=== PATIENT | female | born 1985 | race Caucasian/White ===

== ENCOUNTER 2019-01-03 19:06 | Emergency (ER) | payer MEDICAID ==
[2019-01-03] MEDS: SOD CHLORIDE 0.9% 1,000 ML IV (21:49)
[2019-01-03] MEDS: ONDANSETRON 4 MG INJ IV (21:51)
[2019-01-03 22:00] LABS: ADD MAN DIFF? NO
[2019-01-03 22:05] LABS: BASOPHILS % 0.4 % (0.0-2.0); EOSINOPHILS # 0.1 10^3/ul (0.0-0.5); EOSINOPHILS % 0.9 % (0.0-7.0); HEMATOCRIT 36.2 % (37.0-47.0); LYMPHOCYTES # 2.4 10^3/ul (0.8-2.9); MEAN CORPUSCULAR HEMOGLOBIN 30.2 pg (29.0-33.0); MEAN CORPUSCULAR HGB CONC 33.1 g/dl (32.0-37.0); MEAN PLATELET VOLUME 10.1 fl (7.4-10.4); MONOCYTE # 0.6 10^3/ul (0.3-0.9); MONOCYTES % 6.2 % (0.0-11.0); NEUTROPHIL # 5.9 10^3/ul (1.6-7.5); NEUTROPHILS % 65.2 % (39.0-77.0); PLATELET COUNT 287 10^3/UL (140-415); RED BLOOD COUNT 3.98 10^6/ul (4.20-5.40); RED CELL DISTRIBUTION WIDTH 12.6 % (11.5-14.5)
[2019-01-03 22:23] LABS: ALANINE AMINOTRANSFERASE 9 IU/L (13-69); ALBUMIN 4.1 g/dl (3.3-4.9); ALBUMIN/GLOBULIN RATIO 1.17; ALKALINE PHOSPHATASE 70 IU/L (42-121); ANION GAP 9 (5-13); ASPARTATE AMINO TRANSFERASE 15 IU/L (15-46); BILIRUBIN,INDIRECT 0.2 mg/dl (0-1.1); BILIRUBIN,TOTAL 0.2 mg/dl (0.2-1.3); BLOOD UREA NITROGEN 7 mg/dl (7-20); CALCIUM 9.4 mg/dl (8.4-10.2); CARBON DIOXIDE 25 mmol/L (21-31); CHLORIDE 105 mmol/L (97-110); CREATININE 0.47 mg/dl (0.44-1.00); Estimated GFR > 60 mL/min (>60); GLUCOSE 87 mg/dl (70-220); POTASSIUM 3.7 mmol/L (3.5-5.1); SODIUM 139 mmol/L (135-144); TOTAL PROTEIN 7.6 g/dl (6.1-8.1)
== END 2019-01-03 22:48 | disposition home or self-care (01) ==
LOC: FTE 22:48
DX: O21.0 Mild hyperemesis gravidarum (principal); Z3A.10 10 weeks gestation of pregnancy
CPT/HCPCS: 36415; 80053; 85025; 96374; 99284-25

== ENCOUNTER 2019-06-30 11:14 | Inpatient (IN) | payer MEDICAID ==
[2019-06-30] MEDS ORDERED: METHYLERGONOVINE 0.2 MG INJ IM (12:00)
[2019-06-30] MEDS ORDERED: MISOPROSTOL 200 MCG TAB PR (12:00)
[2019-06-30] MEDS ORDERED: CARBOPROST 250 MCG INJ IM (12:00)
[2019-06-30] MEDS ORDERED: BUTORPHANOL 2 MG INJ IV (12:00)
[2019-06-30] MEDS ORDERED: LIDOCAINE 1% (MPF) 30 ML INJ INJ (12:00)
[2019-06-30] MEDS ORDERED: IBUPROFEN 600 MG TAB PO (12:00)
[2019-06-30] MEDS ORDERED: OXYTOCIN 30 UNITS/LR 500 ML IV (12:00)
[2019-06-30] MEDS: LACTATED RINGER'S 1,000 ML IV ×2 (12:08→15:59)
[2019-06-30 12:19] LABS: ADD MAN DIFF? NO
[2019-06-30 12:27] LABS: BASOPHILS % 0.5 % (0.0-2.0); EOSINOPHILS # 0.1 10^3/ul (0.0-0.5); EOSINOPHILS % 1.3 % (0.0-7.0); HEMATOCRIT 37.9 % (37.0-47.0); HEMOGLOBIN 12.3 g/dl (12.0-16.0); LYMPHOCYTES # 1.6 10^3/ul (0.8-2.9); LYMPHOCYTES % 25.1 % (15.0-51.0); MEAN CORPUSCULAR HEMOGLOBIN 30.5 pg (29.0-33.0); MEAN CORPUSCULAR HGB CONC 32.5 g/dl (32.0-37.0); MEAN PLATELET VOLUME 11.8 fl (7.4-10.4); MONOCYTE # 0.3 10^3/ul (0.3-0.9); MONOCYTES % 4.5 % (0.0-11.0); NEUTROPHIL # 4.3 10^3/ul (1.6-7.5); NEUTROPHILS % 68.3 % (39.0-77.0); PLATELET COUNT 186 10^3/UL (140-415); RED BLOOD COUNT 4.03 10^6/ul (4.20-5.40)
[2019-06-30 12:27] LABS: WHITE BLOOD COUNT 6.3 10^3/ul (4.8-10.8)
[2019-06-30 12:40] LABS: ALANINE AMINOTRANSFERASE 19 IU/L (13-69); ALBUMIN 3.2 g/dl (3.3-4.9); ALKALINE PHOSPHATASE 264 IU/L (42-121); ANION GAP 8 (5-13); ASPARTATE AMINO TRANSFERASE 23 IU/L (15-46); BILIRUBIN,INDIRECT 0.3 mg/dl (0-1.1); BILIRUBIN,TOTAL 0.3 mg/dl (0.2-1.3); BLOOD UREA NITROGEN 7 mg/dl (7-20); CALCIUM 8.9 mg/dl (8.4-10.2); CARBON DIOXIDE 24 mmol/L (21-31); CHLORIDE 106 mmol/L (97-110); CREATININE 0.61 mg/dl (0.44-1.00); Estimated GFR > 60 mL/min (>60); GLUCOSE 117 mg/dl (70-220); POTASSIUM 3.9 mmol/L (3.5-5.1); SODIUM 138 mmol/L (135-144); TOTAL PROTEIN 6.4 g/dl (6.1-8.1); URIC ACID 6.3 mg/dl (3.1-7.9)
[2019-06-30 12:43] LABS: PARTIAL THROMBOPLASTIN TIME 26.6 Sec (23.0-35.0); PROTIME 11.2 Sec (11.9-14.9); PT RATIO 0.9
[2019-06-30 14:38] LABS: HEPATITIS B SURFACE ANTIGEN NEGATIVE (NEGATIVE)
[2019-06-30 15:30] LABS: ADD UMIC YES; UR ASCORBIC ACID NEGATIVE (NEGATIVE); UR BILIRUBIN (Dip) NEGATIVE (NEGATIVE); UR BLOOD (Dip) NEGATIVE (NEGATIVE); UR CLARITY CLEAR (CLEAR); UR COLOR YELLOW (YELLOW); UR GLUCOSE (Dip) NEGATIVE (NEGATIVE); UR KETONES (Dip) NEGATIVE (NEGATIVE); UR LEUKOCYTE ESTERASE (Dip) TRACE Leu/ul (NEGATIVE); UR NITRITE (Dip) NEGATIVE (NEGATIVE); UR RBC 0 /HPF (0-5); UR SPECIFIC GRAVITY (Dip) 1.012 (1.003-1.030); UR TOTAL PROTEIN (Dip) NEGATIVE (NEGATIVE); UR UROBILINOGEN (Dip) NEGATIVE (NEGATIVE); UR WBC 1 /HPF (0-5)
[2019-06-30] MEDS: AMPICILLIN 2 GM/NS (PMX) 100 ML IV (15:58)
[2019-06-30] MEDS: MISOPROSTOL 50 MCG CAPSULE VAG (15:58)
[2019-06-30] MEDS: LABETALOL HCL 20MG INJ IV (18:24)
[2019-06-30] MEDS ORDERED: hydrALAzine 20 MG INJ IV (18:30)
[2019-06-30] MEDS: AMPICILLIN 1 GM/NS (PMX) 50 ML IV (19:36)
[2019-06-30] MEDS: MISOPROSTOL 50 MCG CAPSULE PO (20:00)
[2019-06-30 22:53] LABS: RAPID PLASMA REAGIN NONREACTIVE (NR)
[2019-07-01] MEDS: AMPICILLIN 1 GM/NS (PMX) 50 ML IV ×6 (00:10→20:02)
[2019-07-01] MEDS: MISOPROSTOL 50 MCG CAPSULE PO ×4 (02:26→20:16)
[2019-07-01] MEDS: LACTATED RINGER'S 1,000 ML IV ×2 (04:04→16:11)
[2019-07-02] MEDS: AMPICILLIN 1 GM/NS (PMX) 50 ML IV ×4 (00:01→12:06)
[2019-07-02] MEDS: MISOPROSTOL 50 MCG CAPSULE PO (00:16)
[2019-07-02] MEDS: LACTATED RINGER'S 1,000 ML IV ×4 (03:07→13:28)
[2019-07-02] MEDS: LABETALOL HCL 20MG INJ IV ×3 (04:35→05:55)
[2019-07-02] MEDS ORDERED: FENTAnyl 2MCG/ML-ROPIV 0.2% 100 ML (06:27)
[2019-07-02] MEDS ORDERED: NALOXONE (0.4 MG/ML) INJ IV (06:30)
[2019-07-02] MEDS ORDERED: DIPHENHYDRAMINE 50 MG INJ IV ×2 (06:30→17:30)
[2019-07-02] MEDS ORDERED: MAGNESIUM SULFATE 4 GM/100 ML 100 ML IVPB (08:00)
[2019-07-02] MEDS ORDERED: OXYTOCIN 30 UNITS/LR 500 ML IV ×2 (08:00→17:30)
[2019-07-02] MEDS: ACETAMINOPHEN 325 MG TAB PO (08:00)
[2019-07-02] MEDS: hydrALAzine 20 MG INJ IV (08:00)
[2019-07-02] MEDS: MAGNESIUM SULFATE 4 GM/100 ML 100 ML IVPB (08:03)
[2019-07-02] MEDS: OXYTOCIN 30 UNITS/LR 500 ML IV ×3 (08:04→15:25)
[2019-07-02] MEDS: MAGNESIUM SULFATE 20 GM/500 ML 500 ML IV ×2 (08:31→19:41)
[2019-07-02] MEDS: ONDANSETRON 4 MG INJ IV (09:21)
[2019-07-02] MEDS: FENTAnyl 2MCG/ML-ROPIV 0.2% 100 ML BAG EPI (12:26)
[2019-07-02 12:51] LABS: MAGNESIUM 4.8 mg/dl (1.7-2.5)
[2019-07-02] MEDS: MISOPROSTOL 200 MCG TAB PO (15:30)
[2019-07-02] MEDS ORDERED: DEXTROSE 5%-LR 1,000 ML IV (17:18)
[2019-07-02] MEDS ORDERED: CARBOPROST 250 MCG INJ IM (17:30)
[2019-07-02] MEDS ORDERED: ACETAMINOPHEN 325 MG TAB PO (17:30)
[2019-07-02] MEDS ORDERED: ONDANSETRON 4 MG INJ IV (17:30)
[2019-07-02] MEDS ORDERED: OXYCODONE/ASPIRIN (4.88/325) TAB PO (17:30)
[2019-07-02] MEDS ORDERED: DIBUCAINE 1% 30 GM OINT TOP (17:30)
[2019-07-02] MEDS ORDERED: LANOLIN HPA 1 PKT TOP (17:30)
[2019-07-02] MEDS ORDERED: MISOPROSTOL 200 MCG TAB PR (17:30)
[2019-07-02] MEDS ORDERED: METHYLERGONOVINE 0.2 MG INJ IM (17:30)
[2019-07-02] MEDS ORDERED: ZOLPIDEM 5 MG TAB PO (17:30)
[2019-07-02] MEDS ORDERED: MAGNESIUM HYDROXIDE 30ML CUP PO (17:30)
[2019-07-02] MEDS ORDERED: SENNA/DOCUSATE NA (8.6MG/50MG) TAB PO (17:30)
[2019-07-02] MEDS: IBUPROFEN 600 MG TAB PO (18:52)
[2019-07-02 19:06] LABS: MAGNESIUM 5.8 mg/dl (1.7-2.5)
[2019-07-02] MEDS: LACTATED RINGER'S 1,000 ML IV* (20:21)
[2019-07-02] MEDS: WITCH HAZEL/GLYCERIN PAD PR (20:30)
[2019-07-02] MEDS: BENZOCAINE 20% 56 ML SPRAY TOP (20:30)
[2019-07-03] MEDS: IBUPROFEN 600 MG TAB PO ×5 (00:02→23:33)
[2019-07-03] MEDS: LACTATED RINGER'S 1,000 ML IV* ×3 (01:18→17:18)
[2019-07-03] MEDS: MAGNESIUM SULFATE 20 GM/500 ML 500 ML IV (06:22)
[2019-07-03 07:24] LABS: ADD MAN DIFF? NO
[2019-07-03 07:32] LABS: BASOPHILS % 0.2 % (0.0-2.0); EOSINOPHILS # 0.1 10^3/ul (0.0-0.5); EOSINOPHILS % 0.6 % (0.0-7.0); HEMATOCRIT 33.1 % (37.0-47.0); HEMOGLOBIN 10.9 g/dl (12.0-16.0); LYMPHOCYTES # 1.5 10^3/ul (0.8-2.9); LYMPHOCYTES % 17.7 % (15.0-51.0); MEAN CORPUSCULAR HGB CONC 32.9 g/dl (32.0-37.0); MEAN PLATELET VOLUME 11.6 fl (7.4-10.4); MONOCYTE # 0.3 10^3/ul (0.3-0.9); MONOCYTES % 4.1 % (0.0-11.0); NEUTROPHIL # 6.3 10^3/ul (1.6-7.5); NEUTROPHILS % 76.9 % (39.0-77.0); PLATELET COUNT 169 10^3/UL (140-415); RED BLOOD COUNT 3.52 10^6/ul (4.20-5.40); RED CELL DISTRIBUTION WIDTH 13.2 % (11.5-14.5)
[2019-07-03 07:32] LABS: WHITE BLOOD COUNT 8.3 10^3/ul (4.8-10.8)
[2019-07-03 08:06] LABS: MAGNESIUM 6.6 mg/dl (1.7-2.5)
[2019-07-03 14:07] LABS: MAGNESIUM 6.7 mg/dl (1.7-2.5)
[2019-07-03] MEDS: LABETALOL 200 MG TAB PO ×2 (17:37→22:07)
[2019-07-03] MEDS: NIFEdipine (XL) 60 MG TAB PO (20:57)
[2019-07-04] MEDS: IBUPROFEN 600 MG TAB PO ×4 (05:45→23:58)
[2019-07-04] MEDS ORDERED: LABETALOL 200 MG TAB PO (07:00)
[2019-07-04] MEDS: MEASLES,MUMPS,RUBELLA VACCINE INJ SC* (09:00)
[2019-07-04] MEDS: DIPHTH/TET/ACEL PERTUSS (ADULT) 0.5 ML VIAL IM* (09:00)
[2019-07-05] MEDS: IBUPROFEN 600 MG TAB PO ×2 (05:40→11:52)
== END 2019-07-05 15:45 | disposition home or self-care (01) | DRG 807 ==
LOC: OBT 11:14 → PP1 07-02 17:51 → L-D 11:15
PROC: 10E0XZZ Delivery of Products of Conception, External Approach (ICD-10-PCS; principal; 2019-07-02)
PROC: 0HQ9XZZ Repair Perineum Skin, External Approach (ICD-10-PCS; 2019-07-02)
DX: O13.4 Gestational [pregnancy-induced] hypertension without significant proteinuria, complicating childbirth (principal); Z37.0 Single live birth; O70.0 First degree perineal laceration during delivery; Z3A.37 37 weeks gestation of pregnancy
CPT/HCPCS: 59025; 62322; 76815; 76816; 80053; 81001; 83735; 84560; 85025; 85610; 85730; 86592; 86850; 86900; 86901; 87340